=== PATIENT | male | born 1980 | race African-American/Black ===

== ENCOUNTER 2021-11-30 14:53 | Emergency (ER) | payer MEDICAID ==
[~2021-11-30] VITALS: Ht 170.2 cm; Wt 72.0 kg
[2021-11-30 15:20] VITALS: BP 172/112
[2021-11-30] MEDS ORDERED: IBUP-2030 MT (17:07)
[2021-11-30] MEDS ORDERED: T3 PO (17:07)
[2021-11-30] MEDS ORDERED: CEPH500C2 MT (17:07)
== END 2021-11-30 17:13 | disposition home or self-care (01) ==
LOC: ER 14:53
DX: L02.31 Cutaneous abscess of buttock (principal); I10 Essential (primary) hypertension
CPT/HCPCS: 99283